=== PATIENT | female | born 1940 | race Caucasian/White ===

== ENCOUNTER 2021-01-26 06:37 | Inpatient (IN) ==
[~2021-01-26 06:37] MED LIST: CEFAZOLIN 1,000 MG/7.5 ML SYR IV SCH; SODIUM CHLORIDE 0.9% 1000ML 1,000 ML IV SCH
[2021-01-26 07:57] LABS: BUN Creatinine Ratio 12.5 (10-20); Creatinine Clr Calc Pharmacy 46.9 ml/min; Est GFR (African American) 95.3 ml/min; Est GFR (Non-African American) 82.2 ml/min
--- NOTE | 2021-01-26 08:04 | History & Physical Report ---
Date of Service January 26, 2021 History of Present Illness Primary Care Provider: Carlos Sandhu MD Name: YOVANA CHANDRA Patient Number: [id number] : 1940 Date of Service: 01/14/2021 Chief Complaint: _Follow-up for history of carotid stenosis, renal artery stenosis, and aortoiliac stenosis HPI: _ is an elderly female who presents to Dr. Smith's vascular surgery clinic today for a 2-year follow-up visit regarding her history of bilateral carotid endarterectomies, as well as a redo carotid endarterectomy, and carotid stenting. Additionally she has undergone bilateral common iliac artery stenting in the past, as well as renal artery stenting. Patient denies any significant complaints or concerns since she was seen here 2 years ago. She denies any significant changes in her health. He specifically denies any signs of cerebrovascular insufficiency, including unilateral amaurosis, extremity weakness numbness or tingling, difficulty speaking or swallowing, confusion, facial droop, unilateral headaches or dizziness. Additionally she denies any lower extremity claudication, rest pain, discoloration, edema, nonhealing wounds or ulcers. She lives at home alone and is independent in all of her activities of daily living. She is in the office today with 2 of her daughters. Patient ambulates without assistance. Patient's carotid ultrasound demonstrates widely patent bilateral carotid arteries, status post endarterectomy. Her aortoiliac ultrasound demonstrates a widely patent right iliac artery stent, and a patent left common iliac artery stent with severe restenosis at the distal end of the stent with velocities over 550 cm/s. Her left renal artery stent is widely patent without restenosis. Current Home Meds: (Last Updated 01/14 10:51) albuterol (albuterol CFC free 90 mcg/inh MDI) 2 puff inhaled qid PRN: as needed for wheezing alendronate (alendronate 70 mg oral tablet) 70 mg PO q7days amlodipine 5 mg PO After lunch aspirin 81 mg PO Daily hold-last dose 10/22/06 atorvastatin (Lipitor) 20 mg PO qhs clopidogrel (Plavix) 75 mg PO Daily ferrous sulfate (ferrous sulfate 325 mg (65 mg elemental iron) oral delayed release tablet) 325 mg PO q48h fluticasone-salmeterol (Advair Diskus 100 mcg-50 mcg) 1 puff PO bid PRN: Wheezing hydrochlorothiazide (hydrochlorothiazide 12.5 mg oral tablet) 12.5 mg PO Daily levothyroxine (Synthroid) 88 mcg PO Daily lisinopril (lisinopril 40 mg oral tablet) 0.5 tab po daily metoprolol (Toprol XL) 100 mg PO qhs multivitamin 1 tab PO Daily omeprazole (omeprazole 40 mg oral delayed release capsule) 40 mg PO Daily terazosin 2 mg PO qhs Allergies and Sensitivities: NKA Past Medical History: Problems: Carotid artery stenosis Subclavian artery stenosis TIA CAD Renal artery stenosis Cancer of cervix Hyperlipidemia Thyroid cancer Weight monitoring Stent placement CEA - Carotid endarterectomy Iliac artery stenosis OBJECTIVE Vitals: Last Updated 09/11/18 13:36 Date Temp BP Location Pulse RR SpO2 Pain 09/11/18 0 09/11/18 224/102 Right Arm 09/11/18 210/104 Left Arm 74 91 Vital Signs are the last 3 documented. Orthostatic: Last Updated 10/26/06 06:25 Date Lying Pulse Sitting Pulse Standing Pulse 10/26/06 97/43 72 112/56 76 79/54 82 07/15/05 113/57 66 127/62 71 126/69 80 Orthostatic blood pressures are the last 3 documented. Height and Weight: Last Updated 09/11/18 13:34 Date BMI Wt(kg) Wt(lb) Method Ht(cm) (ft-in) Method 09/11/18 51.3 113 Standing Scale 152.4 5-0 08/25/17 21.87 50.8 112 Standing Scale 152.4 5-0 05/27/16 22.48 52.2 115 Patient stated 152.4 5-0 Standing Heights and Weights are the last 3 documented. Physical Exam Constitutional: In general patient is a frail elderly female in no distress. She is alert and oriented without any focal deficits. Her carotids do demonstrate a bruit. Her heart is regular with a systolic ejection murmur noted. Her lungs are clear bilaterally. Abdomen is soft nontender with normoactive bowel sounds in all 4 quadrants. She does have bilateral lower quadrant bruits. There is no pulsatile mass appreciable. Her right femoral pulse is +2, her left femoral pulse is +1. Her right lower extremity distal pulses are +2. Her left distal pulses are nonpalpable. She has brisk capillary refill to the toes and no sign of distal ischemia ASSESSMENT: _ PLAN: _ 1 ) _history of carotid stenosis and bilateral carotid endarterectomies Overall patient's carotid disease is essentially stable without worrisome restenosis. We recommend that this be reevaluated in 2 years with a new carotid ultrasound. 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 Smith at [facility] in the operating room. The procedure risks benefits alternatives were discussed at length with the patient, her family was present. She expressed understanding and agreement to proceed. 3 ) _renal artery stenosis, history of a left renal stent Patient's left renal artery stent does not demonstrate any restenosis. We recommend that this be reevaluated in 2 years with an ultrasound as well. Patient and her family were advised to call with any other questions. Thank you for letting us participate in the care of this patient. Signature Line Electronic Signature on File CC: Carlos Sandhu MD [address] [place] [id number] * Electronically Reviewed/Signed by: Yeimy Cummins PA-C Author Signature Dt/Tm:01/14/2021 12:13 PM [facility] [address] [id number] Electronically Reviewed/Signed by: MD Stephanie Cervantes Signature Dt/Tm: 01/15/2021 08:01 AM Customer Project Manager [facility] [address] [address] LM Result Type: HVI Outpt Note Date of Service: January 14, 2021 12:06 EDT Authorization Status: Final Author or Import Date: SURY Cummins Lynn on January 14, 2021 12:13 EDT Verified By: MD Luis, Harpreet Marroquin on January 15, 2021 08:01 EDT Encounter info: [id number], [place] [id number], Clinic, 01/14/2021 - 01/14/2021 Allergies Allergy/AdvReac Type Severity Reaction Status Date / Time No Known Allergies Allergy Verified 01/26/21 08:01 Home Medications Medication Instructions Recorded Confirmed Type albuterol mcg INHALATION PRN MDD 4 times 01/26/21 History daily alendronate 70 mg PO WK 01/26/21 01/26/21 History amlodipine 5 mg PO DAILY 01/26/21 01/26/21 History aspirin 81 mg PO DAILY 01/26/21 01/26/21 History atorvastatin 20 mg PO HS 01/26/21 01/26/21 History clopidogrel [Plavix] 75 mg PO DAILY 01/26/21 01/26/21 History ferrous sulfate 325 mg PO DAILY 01/26/21 01/26/21 History fluticasone propion-salmeterol 1 inh INHALATION BID PRN 01/26/21 01/26/21 History [Advair Diskus] hydrochlorothiazide 12.5 mg PO DAILY 01/26/21 01/26/21 History levothyroxine [Synthroid] 88 mcg PO DAILY 01/26/21 01/26/21 History lisinopril 40 mg PO DAILY 01/26/21 01/26/21 History metoprolol succinate [Toprol XL] 100 mg PO DAILY 01/26/21 01/26/21 History multivitamin 1 tab PO DAILY 01/26/21 01/26/21 History omeprazole 40 mg PO DAILY 01/26/21 01/26/21 History terazosin 2 mg PO HS 01/26/21 01/26/21 History Past Med/Surg History Social History Smoking Status: Former smoker Smoking End Date: 25 years ago; Second Hand Exposure: No; Hx Alcohol Use: No Hx Substance Use: No Preferred Language: Micronesian Communication Ability: Effective Communication Ability Comment: Patient is [facility] Beliefs That Will Affect Care: None Current Living Situation: Alone Other Information That Helps Us Care for You: No Feels Safe at Home: Yes Assistive Devices: Denture - Upper, Denture - Lower and Glasses Assistive Devices Comment: dentures removed. Results & Data ([facility]) Vital Signs (Past 12 Hours) Vital Signs Temp Pulse Resp BP Pulse Ox 01/26/21 07:00 36.7 C 58 L 18 167/77 H 97
--- NOTE | 2021-01-26 09:43 | History & Physical Bridge Note ---
Date of Service January 26, 2021 History & Physical Bridge Note I have examined the patient, reviewed the History & Physical and in the interval since the performance of the History & Physical I have noted the following changes of clinical significance: no changes noted
--- NOTE | 2021-01-26 09:43 | Pre Anesthesia Assessment ---
Date of Service January 26, 2021 Pre Sedation Assessment Vital Signs Temp Pulse Resp BP Pulse Ox 01/26/21 07:00 36.7 C 58 L 18 167/77 H 97 Cardiovascular RRR, no murmur, no edema Respiratory normal respiratory effort, lungs clear to auscultation Pre-Sedation Airway Assessment Smoking Status: Former smoker Hx Sleep Apnea: No Short, Thick Neck: No Thyromental Distance: > or= 3.5 Finger Breadths Oral Cavity: + WNL Mallampati Class: II ASA: ASA3 NPO Status Date of Last Intake of Fluids: 01/26/21 Time of Last Intake of Fluids: 05:00 Date of Last Intake of Solid Food: 01/25/21 Time of Last Intake of Solid Foods: 18:00 Procedure Planning Contraindications for Sedation: none Current Medications Reviewed: Yes Notes The planned sedation has been discussed with the patient. Informed Consent was obtained. I have identified the patient, determined the appropriateness of sedation and have assessed the patient immediately prior to the procedure. All medicine(s) and interventions are by my order.
[2021-01-26] MEDS ORDERED: fentaNYL citrate 100 MCG/2 ML VIAL ONE (10:02)
[2021-01-26] MEDS ORDERED: MIDAZOLAM HCL 1 MG/ML 2ML VIAL ONE (10:02)
[2021-01-26] MEDS ORDERED: LIDOCAINE 1% LOCAL 20 ML VIAL INFIL ONE (11:04)
[2021-01-26] MEDS ORDERED: VISIPAQUE IV PRN (11:04)
--- NOTE | 2021-01-26 11:11 | Post Operative Brief Note ---
Immediate Post Op Note v1 Date of Surgery January 26, 2021 Pre & Post Diagnosis Operation Date: 01/26/21 09:10 Pre-Op Diagnosis: Left Iliac Stenosis Post-Op Diagnosis: Left Iliac Stenosis I identified the patient and participated in the time-out.: Yes Procedure Operation Date: 01/26/21 09:10 Actual Procedures p Left Lower Extremity Arteriogram, Ultrasound Localization of Left Femoral Artery, Left Common Iliac Stent, Mechanical Closure of Left Femoral Artery, Moderate Sedation [id number] (Left) - Harpreet Smith MD Surgeon Harpreet Smith MD Compliance Vice President MD Marilyn Estimated Blood Loss 10 Findings Consistent with Post-Op Diagnosis Anesthesia Type RN Sedation Complications none Disposition Accompanied Patient To Recovery: No Disposition: Recovery Room
--- NOTE | 2021-01-26 11:16 | Post Anesthesia Assessment ---
Date of Service January 26, 2021 Post Sedation Assessment Vital Signs Temp Pulse Pulse Resp BP Pulse Ox 01/26/21 11:14 65 15 98/72 L 93 01/26/21 11:10 65 15 90/68 L 92 01/26/21 11:05 62 15 128/64 95 01/26/21 11:00 56 L 15 107/53 L 95 01/26/21 10:55 55 L 15 119/56 L 94 01/26/21 10:50 58 L 15 98/62 L 95 01/26/21 10:45 58 L 15 108/58 L 95 01/26/21 10:40 58 L 15 109/68 95 01/26/21 10:35 56 L 15 122/58 L 94 01/26/21 10:30 65 15 151/80 H 98 01/26/21 10:25 63 15 148/72 H 99 01/26/21 10:20 63 15 164/82 H 100 01/26/21 10:15 64 15 173/72 H 100 01/26/21 10:11 64 17 160/73 H 99 01/26/21 07:00 36.7 C 58 L 18 167/77 H 97 Recovery Score Activity: Moves 4 extremities Respiration: Deep Breath/Cough Circulation: +/-20% PreAnes Value Consciousness: Fully Awake Oxygen Saturation: > 92% On Room Air Post Anesthesia Score: 10 Discharge Sedation Level of Care: Fast Track Phase II Post Sedation Plan On clinical assessment, the patient appears to have tolerated the sedation without complications. Patient is recovering as anticipated. Patient will continue to be monitored by nursing and may be discharged when sedation discharge criteria are met per below protocol. Upon Completions of procedure up to 15 minutes continue every 5 minute vital signs and the P.A.R. score; then discharge to a Phase I or Fast Track to Phase II per the following guidelines: * Discharge Patient to appropriate Phase II area if PAR is 8 or greater or return to pre- procedure baseline. The post - procedure orders will be as directed. * If PAR score is less than 8 or not return to pre-procedure baseline then patient will follow Phase I monitoring till PAR is reached for Phase II. The Phase I may be done in procedure room or may call to secure a Phase I area. * If naloxone or flumazenil are used for reversal, hold in Phase I for continued monitoring from when last reversal dose was given for a minimum of 60 minutes or longer pending the nurse and/or physician discretion of patient condition before discharge to Phase II. Please call the Sedation Physician to re-evaluate and complete post-note for discharge to Phase II area. Do NOT discharge from procedure sedation or Phase 1 until post- sedation evaluation note is complete by procedure /sedation MD Sedation Discharge Instructions to be given to the patient at discharge to home.
--- NOTE | 2021-01-26 11:20 | Procedure Note ---
Angiogram Post Procedure Fluoroscopy Time (minutes): 5.1 Conscious Sedation Time (minutes): 64 Radiation (mGy): 48 Contrast: 25 Post Operative Report Pre & Post Diagnosis Operation Date: 01/26/21 09:10 Pre-Op Diagnosis: Left Iliac Stenosis Post-Op Diagnosis: Left Iliac Stenosis I identified the patient and participated in the time-out.: Yes Procedure Operation Date: 01/26/21 09:10 Actual Procedures p Left Lower Extremity Arteriogram, Ultrasound Localization of Left Femoral Artery, Left Common Iliac Stent, Mechanical Closure of Left Femoral Artery, Moderate Sedation 1015 (Left) - Harpreet Smith MD Surgeon Rosy Lion MD Demurrage Worker MD Marilyn Estimated Blood Loss 10 Findings Consistent with Post-Op Diagnosis Specimens None Anesthesia Type RN Sedation Complications none Disposition Disposition: Recovery Room Description of Procedure Patient was brought to the operating room and placed in supine position. Conscious sedation was administered by RN. Both groins were prepped and draped in sterile fashion. Safety timeout was performed to identify the patient, date of and side of the procedure. Ultrasound-guided percutaneous access of the left groin was performed. A J-wire was then inserted through the needle. The needle was exchanged with a 5 Finnish sheath. Hand-injection through the sheath demonstrated some angulation of the stent but no apparent area of stenosis. The left internal iliac artery was not visualized. We decided to measure arterial pressure across the stent to make sure that there is no hemodynamically significant stenosis. Austin catheter was advanced over Glidewire. The wire was then removed and and the glide catheter was hooked to arterial pressure monitoring system. There was more than 20 mmHg drop in pressure at the distal end of the stent. Therefore, we elected to treat this lesion. Glidewire was advanced. The glide catheter was removed. The 5 Finnish sheath was exchanged with a 7 Finnish sheath. We deployed a VBX 8 x 39 mm stent at the distal portion of the prior iliac stent. Angiogram demonstrated satisfactory deployment of the stent and no flow-limiting stenosis. The distal end of the VBX stent was not well opposed however it was not flow-limiting therefore we elected not to balloon. We once again measured arterial pressure across the distal aorta and pulled back through the stent. There was no pressure gradient across the stented area this time. We used Star close device to seal the access site. There was good hemostasis at the end of the case. Manual pressure was then held for a few minutes. All counts were correct at the end of the case. Dr. Smith was present for the entirety of the case. Patient tolerated procedure well without complications. DP and PT signals were present bilaterally. I attest to the content of the Intraoperative Record and any orders documented therein. Any exceptions are noted below. I attest to the content of the Intraoperative Record and any orders documented therein. Any exceptions are noted below.
--- NOTE | 2021-01-26 11:25 | Operative Report ---
Post Operative Report Pre & Post Diagnosis Operation Date: 01/26/21 09:10 Pre-Op Diagnosis: Left Iliac Stenosis Post-Op Diagnosis: Left Iliac Stenosis I identified the patient and participated in the time-out.: Yes Procedure Operation Date: 01/26/21 09:10 Actual Procedures p Left Lower Extremity Arteriogram, Ultrasound Localization of Left Femoral Art ania, Left Common Iliac Stent, Mechanical Closure of Left Femoral Artery, Moderate Sedation 1015 (Left) - Harpreet Smith MD Surgeon Harpreet Smith Developmental Writing Instructor MD Marilyn Estimated Blood Loss 10 Findings Consistent with Post-Op Diagnosis Specimens None Anesthesia Type RN Sedation Complications none Disposition Disposition: Recovery Room Description of Procedure Patient was brought to the operating room and placed in supine position. Conscious sedation was administered by RN. Both groins were prepped and draped in sterile fashion. Safety timeout was performed to identify the patient, date of and side of the procedure. Ultrasound-guided percutaneous access of the left groin was performed. A J-wire was then inserted through the needle. The needle was exchanged with a 5 Sammarinese sheath. Hand-injection through the sheath demonstrated some angulation of the stent but no apparent area of stenosis. The left internal iliac artery was not visualized. We decided to measure arterial pressure across the stent to make sure that there is no hemodynamically significant stenosis. Welches catheter was advanced over Glidewire. The wire was then removed and and the glide catheter was hooked to arterial pressure monitoring system. There was more than 20 mmHg drop in pressure at the distal end of the stent. Therefore, we elected to treat this lesion. Glidewire was advanced. The glide catheter was removed. The 5 Sammarinese sheath was exchanged with a 7 Sammarinese sheath. We deployed a VBX 8 x 39 mm stent at the distal portion of the prior iliac stent. Angiogram demonstrated satisfactory deployment of the stent and no flow-limiting stenosis. The distal end of the VBX stent was not well opposed however it was not flow-limiting therefore we elected not to balloon. We once again measured arterial pressure across the distal aorta and pulled back through the stent. There was no pressure gradient across the stented area this time. We used Star close device to seal the access site. There was good hemostasis at the end of the case. Manual pressure was then held for a few minutes. All counts were correct at the end of the case. Dr. Smith was present for the entirety of the case. Patient tolerated procedure well without complications. DP and PT signals were present bilaterally. I attest to the content of the Intraoperative Record and any orders documented therein. Any exceptions are noted below.
--- NOTE | 2021-01-26 12:51 | CT Scan Report ---
CT pelvis wo con CT DOSE: CLINICAL HISTORY: s/p Iliac stent TECHNIQUE: A dose lowering technique was utilized adhering to the principles of ALARA. COMPARISON STUDY: None. FINDINGS: Severe calcifications of the distal aorta associated with mild ectasia. Metallic stents are seen within bilateral common iliac arteries. There is large heterogeneous collection is seen within left anterior lateral abdominal wall with inte rnal areas of decreased attenuation likely representing hematoma. This lesion is measuring 6.9 x 4.5 cm on axial view and 8.7 cm in craniocaudal dimension. No evidence of peripheral enhancement or inter nal gas collection is seen to suggest abscess. Visualized loops of bowel are nondilated. IMPRESSION: 1. Large collection with heterogeneous density and no evidence of peripheral enhancement within left anterior lateral abdominal wall most likely representing hematoma. Abscess is less likely. Follow-up evaluation is per clinical protocol. 2. Severe atherosclerosis. Bilateral iliac stents. ACT 112: Negative or not required by law. The above report was generated using voice recognition software. It may contain grammatical, syntax o r spelling errors. Electronically signed by: Eboni Cerna DO 01/26/2021 12:50 PM
[2021-01-26 12:57] LABS: Hematocrit (blood only) 38.2 % (37-47); Hemoglobin 12.2 g/dL (12.0-16.0)
[2021-01-26] MEDS ORDERED: HYDROmorphone INJ 0.5 MG/0.5 ML SYR IV STA (14:02)
[2021-01-26 14:20] LABS: Hematocrit (blood only) 35.2 % (37-47); Hemoglobin 11.3 g/dL (12.0-16.0)
--- NOTE | 2021-01-26 14:32 | Communication Note ---
Date of Service: January 26, 2021 Patient with post op hematoma of left side of pelvis. Had one episode of decreased pressure. Will admit to obs
[2021-01-26] MEDS: SODIUM CHLORIDE 0.45 % 1,000 ML IV SCH ×2 (18:12→22:44)
[2021-01-26 20:42] LABS: Hemoglobin 10.5 g/dL (12.0-16.0)
[2021-01-27 02:45] LABS: Hematocrit (blood only) 30.3 % (37-47)
[2021-01-27] MEDS ORDERED: LEVOTHYROXINE SODIUM 88 MCG TABLET PO SCH (06:30)
[2021-01-27 08:31] LABS: Hematocrit (blood only) 34.2 % (37-47); Hemoglobin 11.1 g/dL (12.0-16.0)
[2021-01-27] MEDS ORDERED: CLOPIDOGREL BISULFATE 75 MG TAB PO SCH (09:00)
[2021-01-27] MEDS ORDERED: hydroCHLOROthiazide 25 MG TAB PO SCH (09:00)
[2021-01-27] MEDS ORDERED: lisinopril 40 MG TAB PO SCH (09:00)
[2021-01-27] MEDS ORDERED: PANTOprazole 40 MG TAB PO SCH (09:00)
[2021-01-27] MEDS ORDERED: METOPROLOL SUCC 50MG EXT REL TAB PO SCH (09:00)
[2021-01-27] MEDS ORDERED: FERROUS SULFATE 325 MG TAB PO SCH (09:00)
[2021-01-27] MEDS ORDERED: ASPIRIN 81 MG ECTAB PO SCH (09:00)
[2021-01-27] MEDS ORDERED: amLODIPine BESYLATE 5 MG TAB PO SCH (09:00)
[2021-01-27] MEDS ORDERED: MULTIVITAMIN TAB PO SCH (09:00)
[2021-01-27] MEDS ORDERED: FLUTICASONE/VILANTEROL 100/25MCG 14 PUFFS/INHALER INH PRN (09:18)
--- NOTE | 2021-01-27 11:03 | Surgery Progress Note ---
Date of Service January 27, 2021 Assessment & Plan (1) Hematoma following angiography: Doing well. No bleeding noted. Will d/c today. Admission and Anticipated Discharge Date Admission Date: January 26, 2021 Subjective Patient without pain. She has no complaints. Not lightheaded when ambulating Physical Exam Constitutional: WD/WN, vitals as above Skin: + incision (dressing intact) Results & Data ([facility]) Vital Signs (Past 12 Hours) Vital Signs Temp Pulse Pulse Resp BP Pulse Ox 01/27/21 08:00 71 01/27/21 07:51 37.0 C 60 18 138/72 98 01/26/21 23:43 36.8 C 62 20 145/66 H 99
[2021-01-27] MEDS ORDERED: ATORVASTATIN 20 MG TAB PO SCH (21:00)
[2021-01-27] MEDS ORDERED: TERAZOSIN HCL 1 MG CAP PO SCH (21:00)
--- NOTE | 2021-01-28 08:11 | Discharge Summary ---
Date of Service January 28, 2021 Admission HPI Per Admitting Provider Name: YOVANA CHANDRA Patient Number: [id number] : 1940 Date of Service: 01/14/2021 Chief Complaint: _Follow-up for history of carotid stenosis, renal artery stenosis, and aortoiliac stenosis HPI: _ is an elderly female who presents to Dr. Smith's vascular surgery clinic today for a 2-year follow-up visit regarding her history of bilateral carotid endarterectomies, as well as a redo carotid endarterectomy, and carotid stenting. Additionally she has undergone bilateral common iliac artery stenting in the past, as well as renal artery stenting. Patient denies any significant complaints or concerns since she was seen here 2 years ago. She denies any significant changes in her health. He specifically denies any signs of cerebrovascular insufficiency, including unilateral amaurosis, extremity weakness numbness or tingling, difficulty speaking or swallowing, confusion, facial droop, unilateral headaches or dizziness. Additionally she denies any lower extremity claudication, rest pain, discoloration, edema, nonhealing wounds or ulcers. She lives at home alone and is independent in all of her activities of daily living. She is in the office today with 2 of her daughters. Patient ambulates without assistance. Patient's carotid ultrasound demonstrates widely patent bilateral carotid arteries, status post endarterectomy. Her aortoiliac ultrasound demonstrates a widely patent right iliac artery stent, and a patent left common iliac artery stent with severe restenosis at the distal end of the stent with velocities over 550 cm/s. Her left renal artery stent is widely patent without restenosis. Current Home Meds: (Last Updated 01/14 10:51) albuterol (albuterol CFC free 90 mcg/inh MDI) 2 puff inhaled qid PRN: as needed for wheezing alendronate (alendronate 70 mg oral tablet) 70 mg PO q7days amlodipine 5 mg PO After lunch aspirin 81 mg PO Daily hold-last dose 10/22/06 atorvastatin (Lipitor) 20 mg PO qhs clopidogrel (Plavix) 75 mg PO Daily ferrous sulfate (ferrous sulfate 325 mg (65 mg elemental iron) oral delayed release tablet) 325 mg PO q48h fluticasone-salmeterol (Advair Diskus 100 mcg-50 mcg) 1 puff PO bid PRN: Wheezing hydrochlorothiazide (hydrochlorothiazide 12.5 mg oral tablet) 12.5 mg PO Daily levothyroxine (Synthroid) 88 mcg PO Daily lisinopril (lisinopril 40 mg oral tablet) 0.5 tab po daily metoprolol (Toprol XL) 100 mg PO qhs multivitamin 1 tab PO Daily omeprazole (omeprazole 40 mg oral delayed release capsule) 40 mg PO Daily terazosin 2 mg PO qhs Allergies and Sensitivities: NKA Past Medical History: Problems: Carotid artery stenosis Subclavian artery stenosis TIA CAD Renal artery stenosis Cancer of cervix Hyperlipidemia Thyroid cancer Weight monitoring Stent placement CEA - Carotid endarterectomy Iliac artery stenosis OBJECTIVE Vitals: Last Updated 09/11/18 13:36 Date Temp BP Location Pulse RR SpO2 Pain 09/11/18 0 09/11/18 224/102 Right Arm 09/11/18 210/104 Left Arm 74 91 Vital Signs are the last 3 documented. Orthostatic: Last Updated 10/26/06 06:25 Date Lying Pulse Sitting Pulse Standing Pulse 10/26/06 97/43 72 112/56 76 79/54 82 07/15/05 113/57 66 127/62 71 126/69 80 Orthostatic blood pressures are the last 3 documented. Height and Weight: Last Updated 09/11/18 13:34 Date BMI Wt(kg) Wt(lb) Method Ht(cm) (ft-in) Method 09/11/18 51.3 113 Standing Scale 152.4 5-0 08/25/17 21.87 50.8 112 Standing Scale 152.4 5-0 05/27/16 22.48 52.2 115 Patient stated 152.4 5-0 Standing Heights and Weights are the last 3 documented. Physical Exam Constitutional: In general patient is a frail elderly female in no distress. She is alert and oriented without any focal deficits. Her carotids do demonstrate a bruit. Her heart is regular with a systolic ejection murmur noted. Her lungs are clear bilaterally. Abdomen is soft nontender with normoactive bowel sounds in all 4 quadrants. She does have bilateral lower quadrant bruits. There is no pulsatile mass appreciable. Her right femoral pulse is +2, her left femoral pulse is +1. Her right lower extremity distal pulses are +2. Her left distal pulses are nonpalpable. She has brisk capillary refill to the toes and no sign of distal ischemia ASSESSMENT: _ PLAN: _ 1 ) _history of carotid stenosis and bilateral carotid endarterectomies Overall patient's carotid disease is essentially stable without worrisome restenosis. We recommend that this be reevaluated in 2 years with a new carotid ultrasound. 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 Smith at [facility] in the operating room. The procedure risks benefits alternatives were discussed at length with the patient, her family was present. She expressed understanding and agreement to proceed. 3 ) _renal artery stenosis, history of a left renal stent Patient's left renal artery stent does not demonstrate any restenosis. We re commend that this be reevaluated in 2 years with an ultrasound as well. Patient and her family were advised to call with any other questions. Thank you for letting us participate in the care of this patient. Signature Line Electronic Signature on File CC: Carlos Sandhu MD [address] [place] [id number] * Electronically Reviewed/Signed by: Yeimy Cummins PA-C Author Signature Dt/Tm:01/14/2021 12:13 PM [facility] [address] [place] [address] Electronically Reviewed/Signed by: Harpreet Smith MD Cosignmariam Signature Dt/Tm: 01/15/2021 08:01 AM Thermospray Operator [facility] [address] [address] Result Type: HVI Outpt Note Date of Service: January 14, 2021 12:06 EDT Authorization Status: Final Author or Import Date: SURY Cummins Lynn on January 14, 2021 12:13 EDT Verified By: MD Luis, Harpreet Marroquin on January 15, 2021 08:01 EDT Encounter info: [id number], [place] [id number], Clinic, 01/14/2021 - 01/14/2021 Admission Exam Per Admitting Provider Constitutional: In general patient is a frail elderly female in no distress. She is alert and oriented without any focal deficits. Her carotids do demonstrate a bruit. Her heart is regular with a systolic ejection murmur noted. Her lungs are clear bilaterally. Abdomen is soft nontender with normoactive bowel sounds in all 4 quadrants. She does have bilateral lower quadrant bruits. There is no pulsatile mass appreciable. Her right femoral pulse is +2, her left femoral pulse is +1. Her right lower extremity distal pulses are +2. Her left distal pulses are nonpalpable. She has brisk capillary refill to the toes and no sign of distal ischemia Principal Diagnosis 1. Retroperitoneal Hematoma 2. s/p LLE angio with L common iliac stent placement 3. Aortoiliac occlusive disease Discharge Exam Constitutional WD/WN, vitals as above Respiratory normal respiratory effort, lungs clear to auscultation Cardiovascular RRR, no murmur, no edema Skin + incision (dressing intact) Discharge Data Allergies Allergy/AdvReac Type Severity Reaction Status Date / Time No Known Allergies Allergy Verified 01/26/21 08:01 Procedures Performed Operation Date: 01/26/21 09:10 Actual Procedures p Left Lower Extremity Arteriogram, Ultrasound Localization of Left Femoral Artery, Left Common Iliac Stent, Mechanical Closure of Left Femoral Artery, Moderate Sedation [id number] (Left) - Harpreet Smith MD Ordered Studies 01/26/21 07:19 EV Angio Abdomen Aorta Routine US EV guide vascular access Routine 01/26/21 12:09 CT pelvis wo con Stat Hospital Course (1) Hematoma following angiography: Doing well POD #1, after developing a post-procedure retroperitoneal hematoma. VS have been stable. No further bleeding noted. Will d/c home today. Total Time Total Time Spent Total Time Spent (In Minutes): 0 Discharge Plan Discharge Items Patient Disposition: Home - Self-Care Reason For Visit: Left Iliac Stenosis Discharge Diagnosis: End stage disease Activity: Per Instructions section Non-emergency contact: Surgeon Call non-emergency contact if: your temperature is above 101.5, your wound has increased redness, your wound has increased drainage and your wound pain has increased Follow-up/Referrals: Carlos Sandhu MD [Primary Care Provider] - Diet: Heart Healthy Addtl Attending Provider Instructions: SPECIAL CARE INSTRUCTIONS: Medications: * Continue to take your medications as directed. If you have been given a prescription for Plavix, please fill it immediately and take as directed. Incision Care: * Your puncture site may have some bruising and minor swelling for about one week. * You will have a small dressing covering your puncture site. You may remove the dressing after 24 hours and shower. You may let the warm soapy water run over it, but be sure to dry the puncture site well and keep it dry. * DO NOT IMMERSE THE INCISION IN A TUB/POOL/etc. UNTIL HEALED. * Puncture sites should be kept covered with a band-aid until it begins to heal. Restrictions: * Depending on whether you leg or arm was punctured to access the arteries, you will be required to lay flat, hold your arm still, or both, for about 4 hours after the procedure to prevent bleeding. * Limit your activity for the first 48 hours. You may walk and go up and down steps. Avoid excessive bending or movement at the puncture site. Possible Complications: * Excessive Swelling - after blood flow is improved you may notice increased swelling in the lower legs. This is a normal response. This usually depends on the amount of blockages in the leg, how long they have been there prior to your procedure and how much blood flow was restored. Elevating your legs will help to improve this. Please notify our office ([phone]) if the swelling does not go away after lying in bed overnight. * Infection/Drainage/Bleeding - Drainage or bleeding from the puncture site should be minimal. If you have excessive bleeding or drainage, call our office ([phone]) right away. * Pain - You may experience some mild pain or soreness at your puncture site. If your pain does not improve, please contact our office ([phone]). Call your doctor and seek emergent treatment if you develop: * Temperature above 101 degrees * Any fever or chills * Any redness or purulent drainage from the puncture site * Any new dusky/blue colored toes or feet with coolness or sharp or aching pa in. SKIN IRRITATION: * You may experience some redness and/or swelling in the area where radiation was administered. If any skin irritation occurs, please contact your family physician. FOLLOW UP VISIT: Keep any scheduled doctor appointments. Call [phone] to schedule a follow up appointment if one not already scheduled. Pending Studies at Discharge: No Stand-Alone Forms: My [facility] Medications and DC Order Prescriptions: Continued albuterol 90 mcg/actuation Aerosol INHALATION MDD 4 times daily PRN (Reason: Wheezing) RF: 0 multivitamin Tablet 1 tab PO DAILY RF: 0 atorvastatin 20 mg Tablet 20 mg PO HS RF: 0 alendronate 70 mg Tablet 70 mg PO WK RF: 0 metoprolol succinate [Toprol XL] 100 mg Tablet Extended Release 24 Hr 100 mg PO DAILY RF: 0 clopidogrel [Plavix] 75 mg Tablet 75 mg PO DAILY RF: 0 amlodipine 5 mg Tablet 5 mg PO DAILY RF: 0 omeprazole 40 mg Capsule,Delayed Release(Dr/Ec) 40 mg PO DAILY RF: 0 levothyroxine [Synthroid] 88 mcg Tablet 88 mcg PO DAILY RF: 0 hydrochlorothiazide 12.5 mg Capsule 12.5 mg PO DAILY RF: 0 terazosin 2 mg Tablet 2 mg PO HS RF: 0 aspirin 81 mg Tablet 81 mg PO DAILY RF: 0 fluticasone propion-salmeterol [Advair Diskus] 100-50 mcg/dose Blister With Device 1 inh INHALATION BID PRN (Reason: Wheezing) RF: 0 lisinopril 40 mg Tablet 40 mg PO DAILY RF: 0 ferrous sulfate 325 mg PO DAILY RF: 0 Discharge Orders: Discharge Order (Routine); Ordered 01/27/21 Ordered By: Harpreet Smith Admission Data Admit Date/Time: 01/26/21 14:32 Attending Provider: Harpreet Smiht Admit Provider: Harpreet Smith Primary Care Provider: Carlos Sandhu Other Interventions: Discharge Summary Assessment (RN) Last Done: 01/27/21 11:17
[2021-02-01] MEDS ORDERED: ALENDRONATE SODIUM 70 MG TAB PO SCH (07:00)
== END 2021-01-27 11:50 | disposition home or self-care (01) | DRG 253 ==
LOC: ASU 06:37 → 2E 14:32